=== PATIENT | female | born 2000 | race Caucasian/White ===

== ENCOUNTER 2023-11-25 15:15 | Outpatient (REF) | payer BC, SELFPAY ==
[2023-11-30 07:08] LABS: Age Gdln ACOG Testing Note (.); IGP, rfx Aptima HPV ASCU Note (.)
== END 2023-11-25 15:16 | disposition home or self-care (01) ==
LOC: LAB 15:15
PROVIDERS: Visit Provider Obstetrics & Gynecology
DX: Z01.419 Encounter for gynecological examination (general) (routine) without abnormal findings (principal)
CPT/HCPCS: G0145

== ENCOUNTER 2024-03-30 12:08 | Emergency (ER) | payer BC, SELFPAY ==
[2024-03-30 12:13] VITALS: BP 128/79; PULSE 68; TEMP 36.3; O2SAT 100; BMI 23.2
--- NOTE | 2024-03-30 12:28 | ED_ITS ---
HPI - Abdominal Pain General Chief Complaint: Abdominal Pain Stated Complaint: ABDOMINAL PAIN Time Seen by Provider: 03/30/24 12:22 History of Present Illness HPI narrative: 23-year-old female presents for abdominal pain. She is complaining of pain which is severe in the lower abdomen and she states is due to her period. It is severe and she has been having issues and has seen a interlocking and signal mechanic about it. She has had an ultrasound and has had no laparoscopies. The working diagnosis was possible endometriosis. Related Data Allergies Allergy/AdvReac Type Severity Reaction Status Date / Time No Known Drug Allergies Allergy Verified 03/30/24 12:16 Review of Systems ROS Narrative A ten point review of systems is negative except as noted above. Exam Narrative Exam Narrative: Nurses note and vital signs reviewed and patient is not hypoxic. General: The patient appears uncomfortable. Skin: Warm, dry, no pallor noted. There is no rash noted. Head: Normocephalic, atraumatic Eye: Normal conjunctiva, no drainage Ears, Nose, Mouth, and Throat: oral mucosa is moist. Nares patent. Cardiovascular: Regular Rate and Rhythm Respiratory: Patient is in no distress, no accessory muscle use, lungs are clear to auscultation, no wheezing, rales or rhonchi Back: non-tender GI: Soft and tender across the lower abdomen. Musculoskeletal: The patient has no evidence of calf tenderness, no pitting hortencia ma, symmetrical pulses noted bilaterally Neurological: Awake and alert Psychiatric: Cooperative Constitutional Vital Signs, click to edit/add: Last Vital Signs Temp 97.3 F L 03/30/24 12:13 Pulse 68 03/30/24 12:13 Resp 20 03/30/24 12:13 BP 128/79 03/30/24 12:13 Pulse Ox 100 03/30/24 12:13 O2 Del Method Room Air 03/30/24 12:13 Course Vital Signs Vital signs: Vital Signs Temperature 97.3 F L 03/30/24 12:13 Pulse Rate 68 03/30/24 12:13 Respiratory Rate 20 03/30/24 12:13 Blood Pressure 128/79 03/30/24 12:13 Pulse Oximetry 100 03/30/24 12:13 Oxygen Delivery Method Room Air 03/30/24 12:13 Temperature 97.3 F L 03/30/24 12:13 Pulse Rate 68 03/30/24 12:13 Respiratory Rate 20 03/30/24 12:13 Blood Pressure 128/79 03/30/24 12:13 Pulse Oximetry 100 03/30/24 12:13 Oxygen Delivery Method Room Air 03/30/24 12:13 MDM - Abdominal Pain MDM Narrative Medical decision making narrative: Blood work is essentially negative, she is not . She is feeling much better with IV Toradol and is discharged home. She will have follow-up with her interlocking and signal mechanic. Treatment diagnosis and follow-up were discussed with the patient. Differential Diagnosis Differential diagnosis: Likely abdominal pain and other (Dysmenorrhea, endometriosis) Lab Data Attestation: I reviewed the patient's lab results. Labs: Lab Results 03/30/24 Range/Units 12:17 WBC 5.8 (4.0-11.0) 10^3/uL RBC 4.65 (4.20-5.40) 10^6/uL Hgb 13.8 (12.0-16.0) g/dL Hct 40.3 (36.0-48.0) % MCV 86.7 (81.0-99.0) fL MCH 29.7 (26.7-34.0) pg MCHC 34.2 (29.9-35.2) g/dL RDW 11.9 (11.0-15.0) % Plt Count 214 (150-450) 10^3/uL MPV 11.3 (9.5-13.5) fL Neut % (Auto) 63.7 (43.0-75.0) % Lymph % (Auto) 27.4 (20.5-60.0) % [place] % (Auto) 7.3 (1.7-12.0) % Eos % (Auto) 1.2 (0.9-7.0) % Baso % (Auto) 0.2 (0.2-2.0) % Neut # (Auto) 3.7 (1.4-6.5) 10^3/uL Lymph # (Auto) 1.6 (1.2-3.8) 10^3/uL [place] # (Auto) 0.4 (0.3-0.8) 10^3/uL Eos # (Auto) 0.1 (0.0-0.7) 10^3/uL Baso # (Auto) 0.0 (0.0-0.1) 10^3/uL Abs Immat Gran (auto) 0.01 (0.00-0.03) 10^3/uL Imm/Tot Granulo (auto) 0.2 (0.0-0.5) % Sodium 136 (136-145) mmol/L Potassium 3.5 (3.5-5.1) mmol/L Chloride 102 (98-107) mmol/L Carbon Dioxide 20.8 L (21.0-32.0) mmol/L Anion Gap 16.7 BUN 9.0 (7.0-18.0) mg/dL Creatinine 0.98 (0.55-1.02) mg/dL Est GFR ( Amer) >60 (>=60) Est GFR (Non-Af Amer) >60 (>=60) BUN/Creatinine Ratio 9.2 Glucose 114 H (74-106) mg/dL Calcium 9.3 (8.5-10.1) mg/dL Serum HCG, Qual Negative (NEGATIVE) Discharge Plan Discharge Chief Complaint: Abdominal Pain Clinical Impression: Dysmenorrhea Patient Disposition: Home, Self-Care Time of Disposition Decision: 13:38 Condition: Good Mode of Transportation: Private Vehicle Print Language: Sammarinese Instructions: Dysmenorrhea (ED) Additional Instructions: Follow-up with Dr. Singh Referrals: Physician,Non-Staff, [Physician] - 1 week
[2024-03-30] MEDS: 0.9 % SODIUM CHLORIDE 1,000 ML 1000 ML IV (12:38)
[2024-03-30] MEDS: ONDANSETRON PF 4 MG/2 ML VIAL IV (12:38)
[2024-03-30 12:41] LABS: Basophils Percent Auto 0.2 % (0.2-2.0); Eosinophils Absolute Auto 0.1 10^3/uL (0.0-0.7); Eosinophils Percent Auto 1.2 % (0.9-7.0); Hematocrit 40.3 % (36.0-48.0); Hemoglobin 13.8 g/dL (12.0-16.0); Immature Granulocytes Abs Auto 0.01 10^3/uL (0.00-0.03); Immature Granulocytes Pct Auto 0.2 % (0.0-0.5); Lymphocytes Absolute Auto 1.6 10^3/uL (1.2-3.8); Lymphocytes Percent Auto 27.4 % (20.5-60.0); Mean Corpuscular HGB Conc 34.2 g/dL (29.9-35.2); Mean Corpuscular Hemoglobin 29.7 pg (26.7-34.0); Mean Corpuscular Volume 86.7 fL (81.0-99.0); Mean Platelet Volume 11.3 fL (9.5-13.5); Monocytes Absolute Auto 0.4 10^3/uL (0.3-0.8); Monocytes Percent Auto 7.3 % (1.7-12.0); Neutrophils Absolute Auto 3.7 10^3/uL (1.4-6.5); Neutrophils Percent Auto 63.7 % (43.0-75.0); Platelet Count 214 10^3/uL (150-450); Red Blood Count 4.65 10^6/uL (4.20-5.40); Red Cell Distribution Width 11.9 % (11.0-15.0); White Blood Count 5.8 10^3/uL (4.0-11.0)
[2024-03-30 12:49] LABS: Anion Gap 16.7; BUN Creatinine Ratio 9.2; Calcium 9.3 mg/dL (8.5-10.1); Carbon Dioxide 20.8 mmol/L (21.0-32.0); Chloride 102 mmol/L (98-107); Estimated GFR (African America >60 (>=60); Estimated GFR (Non-African Ame >60 (>=60); Glucose 114 mg/dL (74-106); Potassium 3.5 mmol/L (3.5-5.1); Sodium 136 mmol/L (136-145)
[2024-03-30 12:53] LABS: HCG Qualitative NEGATIVE (NEGATIVE); Internal Control Within Normal Limits
[2024-03-30] MEDS: KETOROLAC TROMETHAMINE 30 MG/ML VIAL IVP (13:00)
--- OUTSIDE RECORDS SUMMARY | 2024-03-30 13:18 | XMS_ITS | CCD ---
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 Name Role Phone Unavailable Primary Care Provider Suzette Mcgarry Unavailable DR KEVIN BELTRAN Primary Care Unavailable GALA ., DR CASTELLANOS Attending Unavailable GALA ., DR CASTELLANOS Consulting Unavailable GALA ., DR CASTELLANOS Admitting Unavailable KEVIN BELTRAN Primary Care Unavailable MD PEARCE LUCY Attending Unavailable EMANUEL CEDEÑO Attending Unavailable Medications Current Medications Medication Drug Class(es) Dates Sig (Normalized) Sig (Original) ondansetron 4 mg oral tablet (1 source) Serotonin-3 Receptor Antagonist Start: 06-21-2022 take 1 tablet by mouth every eight hours as needed Ondansetron HCl 4 MG 1 tablet Orally every 8 hours as needed for 7 days Jun, Active oseltamivir 75 mg oral capsule (1 source) Neuraminidase Inhibitor Start: 06-21-2022 take 1 capsule by mouth every twelve hours Oseltamivir Phosphate 75 MG 1 capsule Orally Twice a day for 5 day(s) Jun, Active Problems Problem Classification Problem Date Documented Date Episodic/Chronic Abdominal pain (1 source) Generalized abdominal pain; Translations: [Diffuse abdominal pain] Onset: 02-22-2023 Episodic Immunizations and screening for infectious disease (3 sources) Contact with and (suspected) exposure to other viral communicable diseases; Translations: [Encounter for screening for human papillomavirus (HPV)] Onset: 11-22-2022 Episodic Influenza (2 sources) Influenza due to Influenza A virus; Translations: [Influenza due to other identified influenza virus with other respiratory manifestations] Episodic Menstrual disorders (2 sources) Excessive and frequent menstruation with irregular cycle; Translations: [Dysmenorrhea, unspecified] Onset: 02-22-2023 Chronic Other screening for suspected conditions (not mental disorders or infectious disease) (4 sources) Encounter for screening for malignant neoplasm of cervix; Translations: [ENC SCREENING MALIG NEOPLASM CERV] Onset: 11-19-2022 Episodic Results Test Name Value Interpretation Reference Range Facil ity BETA HCG, QUANTITATIVE FOR E Don 02-22-2023 HCG.beta subunit Qn m[IU]/mL Normal <5.0 [facility] Comment on above: Order Comment: Speci men Type: BLOOD SPECIMEN Ordering Facility: [facility] Address: [address] [place] [address] Result Comment: Nega tive Performed By: #### H CGED, 74721-3, 32109-7, 2157-6, 3040-3 #### [facility] CLIA [id number] [address] [place] [address] C. trachomatis+N. gonorrhoea e DNA ANSELMO+probe Ql (Unsp spec)on 02-22-2023 C. trachomatis rRNA ANSELMO+probe Ql (Unsp spec) Negative Normal Negative for Chlamydia trachomatis by amplificaton [facility] Comment on above: Order Comment: Speci men Type: SWAB Ordering Facility: [facility] Address: [address] [place] [address] Performed By: #### 3 6902-5, TRVAMP #### [facility] CLIA [id number] [address] [place] [address] N. gonorrhoeae rRNA ANSELMO+probe Ql (Unsp spec) Negative Normal Negative for Neisseria gonorrhoeae by amplification [facility] Comment on above: Order Comment: Speci men Type: SWAB Ordering Facility: [facility] Address: [address] [place] [address] Performed By: #### 3 6902-5, TRVAMP #### [facility] CLIA [id number] [address] [place] [address] [place] CBC W Auto Differential pane l (Bld)on 02-22-2023 Basophils (Bld) [#/Vol] 10*3/uL Normal <0.11 [facility] Comment on above: Order Comment: Speci men Type: BLOOD SPECIMEN Ordering Facility: [facility] Address: [address] Performed By: #### 5 7021-8 #### [facility] CLIA [id number] [address] [place] [address] [place] Basophils/100 WBC (Bld) 0.0 % Normal [facility] Comment on above: Order Comment: Speci men Type: BLOOD SPECIMEN Ordering Facility: [facility] Address: [address] Performed By: #### 5 7021-8 #### [facility] CLIA [id number] [address] [place] [address] [place] Differential cell count method Nom (Bld) Auto Normal [facility] Comment on above: Order Comment: Speci men Type: BLOOD SPECIMEN Ordering Facility: [facility] Address: [address] Performed By: #### 5 7021-8 #### [facility] CLIA [id number] [address] [place] [address] [place] Eosinophils (Bld) [#/Vol] 10*3/uL Normal <0.46 [facility] Comment on above: Order Comment: Speci men Type: BLOOD SPECIMEN Ordering Facility: [facility] Address: [address] Performed By: #### 5 7021-8 #### [facility] CLIA [id number] [address] [place] [address] [place] Eosinophils/100 WBC (Bld) 0.3 % Normal [facility] Comment on above: Order Comment: Speci men Type: BLOOD SPECIMEN Ordering Facility: [facility] Address: [address] [place] [address] Performed By: #### 5 7021-8 #### [facility] CLIA [id number] [address] [place] [address] [place] Erythrocyte distribution width (RBC) [Ratio] 12.1 % Normal 11.5-15.0 [facility] Comment on above: Order Comment: Speci men Type: BLOOD SPECIMEN Ordering Facility: [facility] Address: [address] [place] [address] Performed By: #### 5 7021-8 #### [facility] CLIA [id number] [address] [place] [address] [place] Hematocrit (Bld) [Volume fraction] 39.7 % Normal 36.0-46.0 [facility] Comment on above: Order Comment: Speci men Type: BLOOD SPECIMEN Ordering Facility: [facility] Address: [address] [place] [address] Performed By: #### 5 7021-8 #### [facility] CLIA [id number] [address] [place] [address] [place] Hemoglobin (Bld) [Mass/Vol] 13.2 g/dL Normal 11.5-15.5 [facility] Comment on above: Order Comment: Speci men Type: BLOOD SPECIMEN Ordering Facility: [facility] Address: [address] [place], [place] [address] Performed By: #### 5 7021-8 #### [facility] CLIA [id number] [address] [place] [address] [place] Immature granulocytes (Bld) [#/Vol] 10*3/uL Normal <0.10 [facility] Comment on above: Order Comment: Speci men Type: BLOOD SPECIMEN Ordering Facility: [facility] Address: [address] [place], [place] [address] Performed By: #### 5 7021-8 #### [facility] CLIA [id number] [address] [place] [address] [place] Immature granulocytes/100 WBC (Bld) 0.3 % Normal [facility] Comment on above: Order Comment: Speci men Type: BLOOD SPECIMEN Ordering Facility: [facility] Address: [address] Performed By: #### 5 7021-8 #### [facility] CLIA [id number] [address] [place] [address] [place] Lymphocytes (Bld) [#/Vol] 0.60 10*3/uL Low 1.00-4.00 [facility] Comment on above: Order Comment: Speci men Type: BLOOD SPECIMEN Ordering Facility: [facility] Address: [address] [place] [address] Performed By: #### 5 7021-8 #### [facility] CLIA [id number] [address] [place] [address] [place] Lymphocytes/100 WBC (Bld) 8.8 % Normal [facility] Comment on above: Order Comment: Speci men Type: BLOOD SPECIMEN Ordering Facility: [facility] Address: [address] Performed By: #### 5 7021-8 #### [facility] CLIA [id number] [address] [place] [address] [place] MCH (RBC) [Entitic mass] 28.9 pg Normal 26.0-34.0 [facility] Comment on above: Order Comment: Speci men Type: BLOOD SPECIMEN Ordering Facility: [facility] Address: [address] Performed By: #### 5 7021-8 #### [facility] CLIA [id number] [address] [place] [address] [place] MCHC (RBC) [Mass/Vol] 33.2 g/dL Normal 30.5-36.0 [facility] Comment on above: Order Comment: Speci men Type: BLOOD SPECIMEN Ordering Facility: [facility] Address: [address] Performed By: #### 5 7021-8 #### [facility] CLIA [id number] [address] [place] [address] [place] MCV (RBC) [Entitic vol] 86.9 fL Normal 80.0-100.0 [facility] Comment on above: Order Comment: Speci men Type: BLOOD SPECIMEN Ordering Facility: [facility] Address: [address] [place] [address] Performed By: #### 5 7021-8 #### [facility] CLIA [id number] [address] [place] [address] [place] Monocytes (Bld) [#/Vol] 0.42 10*3/uL Normal <0.87 [facility] Comment on above: Order Comment: Speci men Type: BLOOD SPECIMEN Ordering Facility: [facility] Address: [address] [place] [address] Performed By: #### 5 7021-8 #### [facility] CLIA [id number] [address] [place] [address] [place] Monocytes/100 WBC (Bld) 6.1 % Normal [facility] Comment on above: Order Comment: Speci men Type: BLOOD SPECIMEN Ordering Facility: [facility] Address: [address] [place], [place] [address] Performed By: #### 5 7021-8 #### [facility] CLIA [id number] [address] [place] [address] [place] Neutrophils (Bld) [#/Vol] 5.78 10*3/uL Normal 1.45-7.50 [facility] Comment on above: Order Comment: Speci men Type: BLOOD SPECIMEN Ordering Facility: [facility] Address: [address] [place], [place] [address] Performed By: #### 5 7021-8 #### [facility] CLIA [id number] [address] [place] [address] [place] Neutrophils/100 WBC (Bld) 84.5 % Normal [facility] Comment on above: Order Comment: Speci men Type: BLOOD SPECIMEN Ordering Facility: [facility] Address: [address] [place] [address] Performed By: #### 5 7021-8 #### [facility] CLIA [id number] [address] [place] [address] [place] Nucleated RBC (Bld) [#/Vol] 10*3/uL Normal <0.01 [facility] Comment on above: Order Comment: Speci men Type: BLOOD SPECIMEN Ordering Facility: [facility] Address: [address] Performed By: #### 5 7021-8 #### [facility] CLIA [id number] [address] [place] [address] [place] Nucleated RBC/100 WBC (Bld) [Ratio] 0.0 /100 WBC Normal [facility] Comment on above: Order Comment: Speci men Type: BLOOD SPECIMEN Ordering Facility: [facility] Address: [address] Performed By: #### 5 7021-8 #### [facility] CLIA [id number] [address] [place] [address] [place] Platelet mean volume (Bld) [Entitic vol] 10.8 fL Normal 9.0-12.7 [facility] Comment on above: Order Comment: Speci men Type: BLOOD SPECIMEN Ordering Facility: [facility] Address: [address] [place], [place] Performed By: #### 5 7021-8 #### [facility] CLIA [id number] [address] [place] [address] [place] Platelets (Bld) [#/Vol] 193 10*3/uL Normal 150-400 [facility] Comment on above: Order Comment: Speci men Type: BLOOD SPECIMEN Ordering Facility: [facility] Address: [address] [place] [address] Performed By: #### 5 7021-8 #### [facility] CLIA [id number] [address] [place] [address] [place] RBC (Bld) [#/Vol] 4.57 10*6/uL Normal 3.90-5.20 [facility] Comment on above: Order Comment: Speci men Type: BLOOD SPECIMEN Ordering Facility: [facility] Address: [address] [place], [place] [address] Performed By: #### 5 7021-8 #### [facility] CLIA [id number] [address] [place] [address] WBC (Bld) [#/Vol] 6.84 10*3/uL Normal 3.70-11.00 [facility] Comment on above: Order Comment: Speci men Type: BLOOD SPECIMEN Ordering Facility: [facility] Address: [address] [place] [address] Performed By: #### 5 7021-8 #### [facility] CLIA [id number] [address] [place] [address] [place] CK SerPl-cCncon 02-22-2023 CK [Catalytic activity/Vol] 67 U/L Normal 42-196 [facility] Comment on above: Order Comment: Speci men Type: BLOOD SPECIMEN Ordering Facility: [facility] Address: [address] [place] [address] Performed By: #### H CGED, 71363-7, 47546-5, 2157-6, 3040-3 #### [facility] CLIA [id number] [address] [place] [address] [place] Comprehensive metabolic 2000 panelon 02-22-2023 Albumin [Mass/Vol] 4.2 g/dL Normal 3.9-4.9 [facility] Comment on above: Order Comment: Speci men Type: BLOOD SPECIMEN Ordering Facility: [facility] Address: [address] [place] [address] Performed By: #### H CGED, 50497-5, 03900-6, 2157-6, 3040-3 #### [facility] CLIA [id number] [address] [place] [address] [place] ALP [Catalytic activity/Vol] 67 U/L Normal 34-123 [facility] Comment on above: Order Comment: Speci men Type: BLOOD SPECIMEN Ordering Facility: [facility] Address: [address] [place] [address] Performed By: #### H CGED, 33728-4, 70059-2, 2157-6, 3040-3 #### [facility] CLIA [id number] [address] [place] [address] [place] ALT [Catalytic activity/Vol] 19 U/L Normal 7-38 [facility] Comment on above: Order Comment: Speci men Type: BLOOD SPECIMEN Ordering Facility: [facility] Address: [address] [place] [address] Performed By: #### H CGED, 37962-2, 63713-8, 2157-6, 3040-3 #### [facility] CLIA [id number] [address] [place] [address] [place] Anion gap [Moles/Vol] 11 mmol/L Normal 9-18 [facility] Comment on above: Order Comment: Speci men Type: BLOOD SPECIMEN Ordering Facility: [facility] Address: [address] [place] [address] Performed By: #### H CGED, 46245-6, 16409-5, 2157-6, 3040-3 #### [facility] CLIA [id number] [address] [place] [address] [place] AST [Catalytic activity/Vol] 19 U/L Normal 13-35 [facility] Comment on above: Order Comment: Speci men Type: BLOOD SPECIMEN Ordering Facility: [facility] Address: [address] [place] [address] Performed By: #### Aleksandr LEONORED, 87460-4, 85604-3, 6, 3039-3 #### [facility] CLIA [id number] [address] [place], [place] [address] [place] Bilirubin [Mass/Vol] 0.7 mg/dL Normal 0.2-1.3 [facility] Comment on above: Order Comment: Speci men Type: BLOOD SPECIMEN Ordering Facility: [facility] Address: [address] Performed By: #### Aleksandr GREEN, 30314-0, 29328-6, 2156-12, 3039-3 #### [facility] CLIA [id number] [address] [place] [address] [place] Calcium [Mass/Vol] 9.1 mg/dL Normal 8.5-10.2 [facility] Comment on above: Order Comment: Speci men Type: BLOOD SPECIMEN Ordering Facility: [facility] Address: [address] Performed By: #### Aleksandr GREEN, 10896-3, 77566-5, 2156-12, 3039-3 #### [facility] CLIA [id number] [address] [place] [address] [place] Chloride [Moles/Vol] 107 mmol/L High 97-105 [facility] Comment on above: Order Comment: Speci men Type: BLOOD SPECIMEN Ordering Facility: [facility] Address: [address] Performed By: #### H NORMA, 53508-4, 59823-4, 2156-12, 3039-3 #### [facility] CLIA [id number] [address] [place] [address] [place] CO2 [Moles/Vol] 21 mmol/L Low 22-30 [facility] Comment on above: Order Comment: Speci men Type: BLOOD SPECIMEN Ordering Facility: [facility] Address: [address] [place] [address] Performed By: #### H CGED, 50990-7, 29172-8, 2156-6, 0-3 #### [facility] CLIA [id number] [address] [place] [id number] [place] Creatinine [Mass/Vol] 0.89 mg/dL Normal 0.58-0.96 [facility] Comment on above: Order Comment: Speci men Type: BLOOD SPECIMEN Ordering Facility: [facility] Address: [address] Performed By: #### H CGED, 67035-6, 17682-6, 2156-12, 0-3 #### [facility] CLIA [id number] [facility] [place] [address] [place] ESTIMATED GLOMERULAR FILTRATION RATE 94 mL/min/1.73m??? Normal >=60 [facility] Comment on above: Order Comment: Speci men Type: BLOOD SPECIMEN Ordering Facility: [facility] Address: [address] [place] [address] Result Comment: Lynn mated Glomerular Filtration Rate (eGFR) is calculated using the 2020 CKD-EPI creatinine equation. This equation utilizes serum creatinine, sex, and age as parameters. The creatinine assay has traceable calibration to isotope dilution-mass spectrometry. Refer to KDIGO guidelines for clinical interpretation. In patients with unstable renal function, e.g. those with acute kidney injury, the eGFR may not accurately reflect actual GFR. Performed By: #### H CGED, 43473-0, 52009-2, 2156-6, 3040-3 #### [facility] CLIA [id number] [address] [place] [id number] [place] Glucose [Mass/Vol] 95 mg/dL Normal 74-99 [facility] Comment on above: Order Comment: Speci men Type: BLOOD SPECIMEN Ordering Facility: [facility] Address: [address] Result Comment: The [place] Diabetes Association (ADA) provides guidance for cutoff values for fasting glucose and random glucose. The ADA defines fasting as no caloric intake for at least 8 hours. Fasting plasma glucose results between 100 to 125 mg/dL indicate increased risk for diabetes (prediabetes). Fasting plasma glucose results greater than or equal to 126 mg/dL meet the criteria for diagnosis of diabetes. In the absence of unequivocal hyperglycemia, results should be confirmed by repeat testing. In a patient with classic symptoms of hyperglycemia or hyperglycemic crisis, random plasma glucose results greater than or equal to 200 mg/dL meet the criteria for diagnosis of diabetes. Reference: Standards of Medical Care in Diabetes 2016, [place] Diabetes Association. Diabetes Care. 2016.39(Suppl 1). Performed By: #### H CGED, , 01593-1, 2156-12, 0-3 #### [facility] CLIA [id number] [facility] [place] [id number] [place] Potassium [Moles/Vol] 3.9 mmol/L Normal 3.7-5.1 [facility] Comment on above: Order Comment: Speci men Type: BLOOD SPECIMEN Ordering Facility: [facility] Address: [address] [place] [address] Performed By: #### H CGED, , , 2156-12, 3039-3 #### [facility] CLIA [id number] [address] [address] [place] Protein [Mass/Vol] 6.8 g/dL Normal 6.3-8.0 [facility] Comment on above: Order Comment: Speci men Type: BLOOD SPECIMEN Ordering Facility: [facility] Address: [address] [place] [address] Performed By: #### H CGED, , , 2156-12, 0-3 #### [facility] CLIA [id number] [address] [address] [place] Sodium [Moles/Vol] 139 mmol/L Normal 136-144 [facility] Comment on above: Order Comment: Speci men Type: BLOOD SPECIMEN Ordering Facility: [facility] Address: [address] [place] [address] Performed By: #### H CGED, 74924-3, 54242-4, 7-6, 3040-3 #### [facility] CLIA [id number] [address] [place] [id number] [place] Urea nitrogen [Mass/Vol] 10 mg/dL Normal 7-21 [facility] Comment on above: Order Comment: Speci men Type: BLOOD SPECIMEN Ordering Facility: [facility] Address: [address] [place] [address] Performed By: #### H CGED, 23742-6, 93158-7, 6, 0-3 #### [facility] CLIA [id number] [address] [place] ED NOTEon 02-22-2023 ED NOTE HNO ID: [id number] Author: Ness Holliday RN Service: ? Author Type: Registered Nurse Type: ED Notes Filed: 02/22/2023 10:48 AM Note Text: Bed: E13-B08 Expected date: Expected time: Means of arrival: Comments: EMS - hr advisor Normal [facility] ED PROV NOTEon 02-22-2023 ED PROV NOTE HNO ID: [id number] Author: Teresa Pearce MD Service: Emergency Medicine Author Type: Physician Type: ED Provider Notes Filed: 02/22/2023 12:50 PM Note Text: ED Provider Note Patient Name: Shira Cunningham : 2000 SERVICE DATE: 02/22/23 History Patient presents with: Abdominal Pain Dizziness: Numbness: Pt presents to ED via EMS with two day hx of feelings of lightheadedness, abdominal cramping, numbness and tingling to fingers. HPI 22-year-old female past medical history significant for recent removal of her IUD in November with irregular menstrual cycles that are painful, LMP today who presents emergency department via EMS from outpatient [facility] regarding severe abdominal pain. Patient states that she was in her usual state of health yesterday, she went for a run which she does daily, noting that she runs several miles a day, but after running about a mile she had to stop due to an oncoming train and developed severe abdominal pain. States she was unable to get up due to the pain and run so she had a call for a ride home, thought it was dehydration had some water without relief, had 1 episode of nonbloody nonbilious emesis No urinary symptoms No fever or chills No URI symptoms States she went to work today, took some Tylenol prior for the abdominal discomfort, her menstrual cycle initiated thought that this was menstrual cramps but while in clinic developed severe abdominal pain unlike any menstrual cycle in the past States he did tjowz-ra-vose labs there which showed normal electrolytes, lactate 3.36 and EMS called, did not have anything in addition to pain which has since significantly subsided, only dull now No h/o ovarian cysts or torsion + b/l menorrhagia states goes through 6 super tampons/day (only on her first currently as menstrual cycle just started) + sexually active, does not use protection, no alternative BC since removal of IUD No past medical history on file. No past surgical history on file. No family history on file. Social History Tobacco Use Smoking status: Not on file Smokeless tobacco: Not on file Substance and Sexual Activity Alcohol use: Not on file Drug use: Not on file Sexual activity: Not on file ALLERGIES No Known Allergies Review of Systems All other systems reviewed and are negative. Physical Exam Vitals [02/22/23 1101] BP Pulse Temp Temp src Resp SpO2 Weight Height 113/75 64 36.4 ?C (97.6 ?F) Oral 18 100 % 61.2 kg (135 lb) 1.702 m (5' 7 ) Physical Exam Vitals and nursing note reviewed. Exam conducted with a rv technician present (MANNY Leger). Constitutional: General: She is not in acute distress. Appearance: Normal appearance. She is not ill-appearing, toxic-appearing or diaphoretic. HENT: Head: Normocephalic and atraumatic. Nose: No congestion. Mouth/Throat: Mouth: Mucous membranes are moist. Eyes: General: No scleral icterus. Cardiovascular: Rate and Rhythm: Normal rate and regular rhythm. Pulses: Normal pulses. Heart sounds: Normal heart sounds. Pulmonary: Effort: Pulmonary effort is normal. No respiratory distress. Abdominal: General: Abdomen is flat. There is no distension. Palpations: Abdomen is soft. There is no mass. Tenderness: There is no abdominal tenderness. There is no right CVA tenderness or left CVA tenderness. Genitourinary: Comments: + bleeding No clots in vaginal vault No CMT No adnexal mass/tenderness Musculoskeletal: General: No swelling. Normal range of motion. Cervical back: Normal range of motion and neck supple. Skin: General: Skin is warm and dry. Capillary Refill: Capillary refill takes less than 2 seconds. Coloration: Skin is not jaundiced. Neurological: General: No focal deficit present. Mental Status: She is alert. Motor: No weakness. Psychiatric: Mood and Affect: Mood normal. Diagnostic Testing ED Labs Ordered and Reviewed URINALYSIS WITH MICROSCOPIC, REFLEX CULTURE - Abnormal; Notable for the following components: Result Value Ref Range Specific [place], Ur 1.032 (*) 1.005 - 1.030 pH, Urine 8.5 (*) 5.0 - 8.0 Protein, Urine 1+ (*) Trace, Negative WBC, Urine 6-10 /HPF (*) 0-5 /HPF All other components within normal limits Narrative: Rechecked by light microscopy. CBC + DIFF - Abnormal; Notable for the following components: Abs Lymph 0.60 (*) 1.00 - 4.00 k/uL All other components within normal limits COMP METABOLIC PANEL - Abnormal; Notable for the following components: Chloride 107 (*) 97 - 105 mmol/L CO2 21 (*) 22 - 30 mmol/L All other components within normal limits CK CREATINE KINASE - Normal LIPASE BLD - Normal MAGNESIUM BLD - Normal BETA HCG, QUANTITATIVE FOR ED - Normal LACTATE - ED (POC) ED BG VENOUS/LAB PANELS Narrative: Meter ID:ED Location:ED [facility], [address] [place] [address], [address] GONORRHEA/CHLAMYDIA NAAT TRI (more content not included)... Normal [facility] Lipase SerPl-cCncon 02-23-20 23 Lipase [Catalytic activity/Vol] 23 U/L Normal 16-61 [facility] Comment on above: Order Comment: Speci men Type: BLOOD SPECIMEN Ordering Facility: [facility] Address: [address] Performed By: #### H NORMA, 32745-2, 74484-2, 2156-6, 0-3 #### [facility] CLIA [id number] [address] [place] [address] [place] Magnesium SerPl-mCncon 02-22 Magnesium [Mass/Vol] 1.8 mg/dL Normal 1.7-2.3 [facility] Comment on above: Order Comment: Speci men Type: BLOOD SPECIMEN Ordering Facility: [facility] Address: [address] [place], [place] [address] Performed By: #### H NORMA, 89895-3, 98473-6, 2156-12, 0-3 #### [facility] CLIA [id number] [address] [place] [address] [place] Reagin and Treponema pallidu m IgG and IgM [Interp]on 02-22-2023 SYPHILIS INTERPRETATION Cannot exclude recent Treponemal infection if specimen collected within 7-10 days after appearance of suspect lesions or 2-3 weeks after an exposure. Clinical correlation is required. Normal [facility] Comment on above: Order Comment: Speci men Type: BLOOD SPECIMENOrdering Facility: [facility] Address: [address] [place], [place] [address] Performed By: #### 7 3752-8 ####[facility] [id number] [place] [address] [place] T. pallidum IgG+IgM IA Ql (S) Non-Reactive Normal Nonreactive [facility] Comment on above: Order Comment: Speci men Type: BLOOD SPECIMENOrdering Facility: [facility] Address: [address] [place], [place] [address] Performed By: #### 7 3752-8 ####[facility] [id number] [place] [address] [place] TRICHOMONAS VAGINALIS [facility] 02-22-2023 T. vaginalis DNA ANSELMO+probe Ql (Unsp spec) Negative Normal Negative for Trichomonas vaginalis by amplification [facility] Comment on above: Order Comment: Speci men Type: SWABOrdering Facility: [facility] Address: [address] [place] [address] Performed By: #### 3 6902-5, TRVAMP ####[facility] [id number] [facility] [address] [place] US DOPPLER COMPLETEon 2022 US DOPPLER COMPLETE * * *Final Report* * * DATE OF EXAM: Feb 22 2023 12:02PM [facility] [place] [facility] [place] DOPPLER COMPLETE / PROCEDURE REASON: Ovarian torsion * * * * Physician Interpretation * * * * EXAMINATION: TRANSVAGINAL AND LIMITED TRANSABDOMINAL FEMALE PELVIC ULTRASOUND CLINICAL HISTORY: Left lower quadrant abdominal pain. Concern for torsion. TECHNIQUE: Sonography of the pelvis was performed by transvaginal and transabdominal (limited) techniques. Images were obtained and stored in a permanent archive. MQ: [facility]_2021 COMPARISON: None RESULT: Uterus: -Size: 6.3 x 3.2 x 5.5 cm -Orientation: Anteverted -Endometrial echo complex: Evaluation of the endometrium was adequate. The endometrial echo complex measured 1.0 cm. -Cervix: Normal, with trace fluid. -Adenomyosis assessment: There are no sonographic findings of adenomyosis. -Fibroids: There are no fibroids. Right Ovary: 3.3 x 2.0 x 2.0 cm - Normal sonographic appearance with physiologic follicles. Doppler imaging showed normal arterial and venous flow throughout the ovary. Left Ovary: 3.2 x 2.0 x 3.0 cm - Normal sonographic appearance with physiologic follicles. Doppler imaging showed normal arterial and venous flow throughout the ovary. Free Fluid: Small free fluid is likely physiologic. IMPRESSION: Normal sonographic appearance of the female pelvis. Normal arterial and venous flow within both ovaries. Hr Recruiter: KATY Transcribe Date/Time: Feb 22 2023 12:09P Dictated by : JOANNA LARRY, DO This examination was interpreted and the report reviewed and electronically signed by: ANDIE DONALD MD on Feb 22 2023 12:16PM EST [id number] CN Normal [facility] US FEMALE PELVIS TRANSABD LT Don 02-22-2023 US FEMALE PELVIS TRANSABD LTD * * *Final Report* * * DATE OF EXAM: Feb 22 2023 12:02PM [facility] 1059 - US FEMALE PELVIS TRANSABD LTD / PROCEDURE REASON: Ovarian torsion * * * * Physician Interpretation * * * * EXAMINATION: TRANSVAGINAL AND LIMITED TRANSABDOMINAL FEMALE PELVIC ULTRASOUND CLINICAL HISTORY: Left lower quadrant abdominal pain. Concern for torsion. TECHNIQUE: Sonography of the pelvis was performed by transvaginal and transabdominal (limited) techniques. Images were obtained and stored in a permanent archive. MQ: [facility]_2021 COMPARISON: None RESULT: Uterus: -Size: 6.3 x 3.2 x 5.5 cm -Orientation: Anteverted -Endometrial echo complex: Evaluation of the endometrium was adequate. The endometrial echo complex measured 1.0 cm. -Cervix: Normal, with trace fluid. -Adenomyosis assessment: There are no sonographic findings of adenomyosis. -Fibroids: There are no fibroids. Right Ovary: 3.3 x 2.0 x 2.0 cm - Normal sonographic appearance with physiologic follicles. Doppler imaging showed normal arterial and venous flow throughout the ovary. Left Ovary: 3.2 x 2.0 x 3.0 cm - Normal sonographic appearance with physiologic follicles. Doppler imaging showed normal arterial and venous flow throughout the ovary. Free Fluid: Small free fluid is likely physiologic. IMPRESSION: Normal sonographic appearance of the female pelvis. Normal arterial and venous flow within both ovaries. Hr Recruiter: PSCHaydee Transcribe Date/Time: Feb 22 2023 12:09P Dictated by : JOANNA LARRY, DO This examination was interpreted and the report reviewed and electronically signed by: ANDIE DONALD MD on Feb 22 2023 12:16PM EST [id number] CN Normal [facility] FEMALE PELVIS TRANSVAGon 02-22-2023 US FEMALE PELVIS TRANSVAG * * *Final Report* * * DATE OF EXAM: Feb 22 2023 12:02PM [facility] 1060 - US FEMALE PELVIS TRANSVAG / PROCEDURE REASON: Ovarian torsion * * * * Physician Interpretation * * * * EXAMINATION: TRANSVAGINAL AND LIMITED TRANSABDOMINAL FEMALE PELVIC ULTRASOUND CLINICAL HISTORY: Left lower quadrant abdominal pain. Concern for torsion. TECHNIQUE: Sonography of the pelvis was performed by transvaginal and transabdominal (limited) techniques. Images were obtained and stored in a permanent archive. MQ: P_2021 COMPARISON: None RESULT: Uterus: -Size: 6.3 x 3.2 x 5.5 cm -Orientation: Anteverted -Endometrial echo complex: Evaluation of the endometrium was adequate. The endometrial echo complex measured 1.0 cm. -Cervix: Normal, with trace fluid. -Adenomyosis assessment: There are no sonographic findings of adenomyosis. -Fibroids: There are no fibroids. Right Ovary: 3.3 x 2.0 x 2.0 cm - Normal sonographic appearance with physiologic follicles. Doppler imaging showed normal arterial and venous flow throughout the ovary. Left Ovary: 3.2 x 2.0 x 3.0 cm - Normal sonographic appearance with physiologic follicles. Doppler imaging showed normal arterial and venous flow throughout the ovary. Free Fluid: Small free fluid is likely physiologic. IMPRESSION: Normal sonographic appearance of the female pelvis. Normal arterial and venous flow within both ovaries. Hr Recruiter: PSCB Transcribe Date/Time: Feb 22 2023 12:09P Dictated by : JOANNA LARRY, This examination was interpreted and the report reviewed and electronically signed by: ANDIE DONALD MD on Feb 22 2023 12:16PM EST [id number] CN Normal [facility] Urinalysis complete panel (U )on 02-22-2023 Bilirubin Ql (U) Negative Normal Negative [facility] Comment on above: Order Comment: Speci men Type: URINE SPECIMEN Ordering Facility: [facility] Address: [address] [address] Performed By: #### 2 4356-8 #### [facility] CLIA [id number] [address] [place] [address] [place] Clarity (Unsp spec) Clear Normal Clear [facility] Comment on above: Order Comment: Speci men Type: URINE SPECIMEN Ordering Facility: [facility] Address: [address] [address] Performed By: #### 2 4356-8 #### [facility] CLIA [id number] [address] [place] [address] [place] Color (U) Yellow Normal Yellow [facility] Comment on above: Order Comment: Speci men Type: URINE SPECIMEN Ordering Facility: [facility] Address: [address] Performed By: #### 2 4356-8 #### [facility] CLIA [id number] [address] [place] [address] [place] Epithelial cells LM.HPF (Urine sed) [#/Area] Few Normal [facility] Comment on above: Order Comment: Speci men Type: URINE SPECIMEN Ordering Facility: [facility] Address: [address] [place] [address] Performed By: #### 2 4356-8 #### [facility] CLIA [id number] [address] [place] [address] [place] Glucose Test strip (U) [Mass/Vol] Negative Normal Trace, Negative [facility] Comment on above: Order Comment: Speci men Type: URINE SPECIMEN Ordering Facility: [facility] Address: [address] [place], [place] [address] Performed By: #### 2 4356-8 #### [facility] CLIA [id number] [address] [place] [address] [place] Hemoglobin Ql (U) Negative Normal Negative, Trace [facility] Comment on above: Order Comment: Speci men Type: URINE SPECIMEN Ordering Facility: [facility] Address: [address] [place] [address] Performed By: #### 2 4356-8 #### [facility] CLIA [id number] [address] [place] [address] [place] Ketones Ql (U) Negative Normal Trace, Negative [facility] Comment on above: Order Comment: Speci men Type: URINE SPECIMEN Ordering Facility: [facility] Address: [address] Performed By: #### 2 4356-8 #### [facility] CLIA [id number] [address] [place] [address] [place] Leukocyte esterase Test strip Ql (U) Negative Normal Negative, 25 Vinod/uL [facility] Comment on above: Order Comment: Speci men Type: URINE SPECIMEN Ordering Facility: [facility] Address: [address] [place] [address] Performed By: #### 2 4356-8 #### [facility] CLIA [id number] [facility] [address] [place] [address] [place] Nitrite Ql (U) Negative Normal Negative [facility] Comment on above: Order Comment: Speci men Type: URINE SPECIMEN Ordering Facility: [facility] Address: [address] [place], [place] [address] Performed By: #### 2 4356-8 #### [facility] CLIA [id number] [address] [place] [address] [place] pH (U) 8.5 [pH] High 5.0-8.0 [facility] Comment on above: Order Comment: Speci men Type: URINE SPECIMEN Ordering Facility: [facility] Address: [address] [place], [place] [address] Performed By: #### 2 4356-8 #### [facility] CLIA [id number] [address] [place] [address] [place] Protein (U) [Mass/Vol] 1+ Abnormal Trace, Negative [facility] Comment on above: Order Comment: Speci men Type: URINE SPECIMEN Ordering Facility: [facility] Address: [address] [place], [place] [address] Performed By: #### 2 4356-8 #### [facility] CLIA [id number] [facility] [address] [place] [address] [place] RBC LM.HPF (Urine sed) [#/Area] 0-3 /HPF Normal 0-3 /HPF [facility] Comment on above: Order Comment: Speci men Type: URINE SPECIMEN Ordering Facility: [facility] Address: [address] [place] [address] Performed By: #### 2 4356-8 #### [facility] CLIA [id number] [address] [place] [address] [place] Specific gravity (U) [Rel density] 1.032 High 1.005-1.030 [facility] Comment on above: Order Comment: Speci men Type: URINE SPECIMEN Ordering Facility: [facility] Address: [address] [place] [address] Performed By: #### 2 4356-8 #### [facility] CLIA [id number] [address] [place] [address] [place] Urobilinogen Ql (U) Negative Normal Negative [facility] Comment on above: Order Comment: Speci men Type: URINE SPECIMEN Ordering Facility: [facility] Address: [address] [place] [address] Performed By: #### 2 4356-8 #### [facility] CLIA [id number] [address] [place] [address] [place] WBC LM.HPF (Urine sed) [#/Area] 6-10 /HPF Abnormal 0-5 /HPF [facility] Comment on above: Order Comment: Speci men Type: URINE SPECIMEN Ordering Facility: [facility] Address: [address] [place], [place] [address] Performed By: #### 2 4356-8 #### [facility] CLIA [id number] [address] [place] [address] [place] PAP ACOG PANEL 2: 21 to 29on 11-26-2022 . . Normal [facility] Comment on above: Performed By: #### 4 [id number] #### [facility] [address] [place] [address] Dr. Mark Lima Age Gdln ACOG Testing 21-29 Normal [facility] Comment on above: Performed By: #### 4 [id number] #### [facility] [address] [place] [address] Dr. Mark Lima DIAGNOSIS: Comment [facility] Comment on above: Result Comment: NEGA TIVE FOR INTRAEPITHELIAL LESION OR MALIGNANCY. Performed By: #### 4 [id number] #### [facility] [address] [place] [address] Dr. Mark Lima Methodology: Comment [facility] Comment on above: Result Comment: This liquid based ThinPrep(R) pap test was screened with the use of an image guided system. Performed By: #### 4 [id number] #### [facility] [address] [place] [address] Dr. Mark Lima Note: Comment Normal [facility] Comment on above: Result Comment: The Pap smear is a screening test designed to aid in the detection of premalignant and malignant conditions of the uterine cervix. It is not a diagnostic procedure and should not be used as the sole means of detecting cervical cancer. Both false-positive and false-negative reports do occur. . Performed By: #### 4 [id number] #### [facility] [address] [place] [address] Dr. Mark Lima Performed by: Comment Normal [facility] Comment on above: Result Comment: Shelli Osborn, Bar Gauger And Lubricator Tender (ASCP) Performed By: #### 4 [id number] #### [facility] [address] [place] [address] Dr. Mark Lima Reflex Criteria: Comment [facility] Comment on above: Result Comment: The HPV DNA reflex criteria were not met with this specimen result therefore, no HPV testing was performed. . Performed By: #### 4 [id number] #### [facility] [address] [place] [address] Dr. Mark Lima Specimen adequacy: Comment Normal [facility] Comment on above: Result Comment: Sati sfactory for evaluation. Endocervical and/or squamous metaplastic cells (endocervical component) are present. Performed By: #### 4 [id number] #### [facility] [address] [place] [address] Dr. Mark Flower 06-22-2022 CNPN Telephone (CORPMN) MARISASHIRA ([id number]) 2000 F Date Time Provider Department 06/22/22 KI NATARAJAN During your visit today, we recorded the following information about you: Ki Natarajan RN 06/22/2022 10:19 AM Signed Cg called to report neg PCR done at [facility], and + influenza A test. Sending results to darya mailbox. Instructed Cg she does not neeed to be cleared by [facility] to RTW for influenza, just when 24 hrs fever free and feeling better. Cg verbalized understanding. AD Allergies As of Date: 06/22/2022 (Not on File) Date Reviewed: Never Reviewed Reason for Visit: [facility] COVID Outreach [[id number]] Problem List As Of Date: 06/22/2022 (None) Encounter Status:Closed by KI NATARAJAN on 06/22/22 Normal [facility] COVID/FLU RT-PCRon 2 SARS-CoV-2 (COVID-19) RNA ANSELMO+probe Ql (Unsp spec) Negative [facility] Other COVID/FLU RT-PCR Positive [facility] Other COVID/FLU RT-PCR Negative [facility] Other Quick Strepon 06-21-2022 S. pyogenes Org specific cx Ql (Throat) Negative [facility] Other Quick Strep [facility] Other Ching 06-20-2022 CNPN Telephone (CORPMN) SHIRA CUNNINGHAM ([id number]) 2000 F Date Time Provider Department 06/20/22 SYNDI HERNÁNDEZ During your visit today, we recorded the following information about you: Sydni Hernández RN 06/20/2022 7:32 PM Signed Symptomatic Caregiver COVID Call Patient Name: Shira Cunningham Date of : 2000 Primary Care Physician: No primary care provider on file. Service Date: 06/20/2022 Service Time: 7:26 PM Symptomatic Caregiver COVID Call - confirmed: Yes -Caregiver employee ID: [id number] -Symptom onset: 06/20/22 Covid Immunization Dates This patient does not qualify for Health Maintenance. Recent travel outside [place]: no Cares for COVID-19 positive patients: no Known positive COVID-19 contacts: no Previously positive for COVID: yes, Jul 2021 Comorbidities: [] Obesity [] Diabetes Mellitus [] Asthma/COPD [] [] Other: Symptoms: Fever, body aches, chills, sore throat [x] Mild [] Moderate [] Severe CG went tot work today but started having symptoms. [employer] told her to call the Hotline. Shira meets criteria for Caregiver COVID19 testing. CG prefers to go to local retail pharmacy. CG will call back with results. New chart set up and activation code sent. Plan -Reinforced self-isolation, avoiding public areas and gatherings, pending COVID19 result -Mask while home with family and not isolated alone -Advised no work pending COVID19 result -Advised to seek evaluation by primary care provider, [facility], or ED with worsening or escalating symptoms -Advised to call the COVID Hotline with outstanding questions/comments/c oncerns Signature: Sydni Hernández RN Patient Name: Shira Cunningham Date: 06/20/2022 Time: 7:26 PM Pager/Contact: Allergies As of Date: 06/20/2022 (Not on File) Date Reviewed: Never Reviewed [facility]3236] Problem List As Of Date: 06/20/2022 (None) Encounter Status:Closed by SYDNI HERNÁNDEZ on 06/20/22 Normal [facility] Vital Signs Date Time Vital Sign Value Performing Clinician Facility 06-21-2022 16:20-0500 Body height 170.18 cm Suzette Marcos Other [facility] Other 06-21-2022 16:20-0500 Body mass index (BMI) [Ratio] 21.14 kg/m2 Suzette Marcos Other [facility] Other 06-21-2022 16:20-0500 Body temperature 98.7 [degF] Suzette Marcos Other [facility] Other 06-21-2022 16:20-0500 Body weight 61.24 kg Suzette Marcos Other [facility] Other 06-21-2022 16:20-0500 Diastolic blood pressure 88 mm[Hg] Suzette Marcos Other [facility] Other 06-21-2022 16:20-0500 Respiratory rate 18 /min Suzette Marcos Other [facility] Other 06-21-2022 16:20-0500 SaO2% (BldA) [Mass fraction] 100 % Suzette Marcos Other [facility] Other 06-21-2022 16:20-0500 Systolic blood pressure 125 mm[Hg] Suzette Marcos Other [facility] Other Encounters Encounter Date Encounter Type Care Provider Facility Start: 11-25-2023 End: 11-25-2023 ambulatory EMANUEL GALA Not Available Start: 02-22-2023 End: 02-22-2023 Emergency department patient visit KEVIN Ingrid MILESTENZINAleshia Facility:[facility] Start: 11-19-2022 End: 11-19-[address] KEVIN BELTRAN Facility: Start: 06-21-2022 End: 06-21-2022 ambulatory Suzette Marcos Other [facility] Other Start: 06-21-2022 Office outpatient ne w 30 minutes Suzette Marcos [facility] Start: 06-20-2022 Telephone encounter Sydni Hernández RN Occupational Health Comment on above: [facility] COVID Outr each Payers Date Payer Category Payer Unknown [id number] 2000 Unknown [id number] 2000 Unknown [id number] Unknown [id number] Social History Date Type Detail Facility Tobacco smoking status TXIS Tobacco smoking consumption unknown [facility] Start: 2000 Sex Assigned At Not on file C [facility] Sex Assigned At Sex Assigned At Bir th [facility] Other Progress note 02-22-2023 Note Date & Type Note Facility 02-22-2023 Note HNO ID: [id number] Author: Alem Cook RT(A[facility]ia) Service: ? Author Type: Technologist Type: Progress Notes Filed: 02/22/2023 12:02 PM Note Text: Radiology Service Progress Note PATIENT NAME: Shira Cunningham DATE OF SERVICE: February 22, 2023 TIME: 12:02 PM PATIENT IDENTITY VERIFICATION COMPLETED USING TWO (2) IDENTIFIERS: Name and Date of confirmed by patient verbally and Name and Date of confirmed by identification band. FALL SCREENING: Has the patient had 2 falls in the last year or 1 fall with injury or currently using an Ambulatory Assistive Device (Walker, Cane, Wheelchair, Crutches, etc.)? Emergency Room Patient: Screened in ED PATIENT GENDER DATA: Female. status: Unknown status: N/A PATIENT RELEVANT IMPLANT DATA REVIEWED: Not Applicable RADIOLOGY DEPARTMENT: Ultrasound PERIPHERAL IV DATA: Not applicable SIGNED BY: RT Hubert(R) February 22, 2023 12:02 PM [facility] Evaluation note 06-21-2022 Note Date & Type Note Facility 06-21-2022 Evaluation note Encounter Date Diagnosis Assessment Notes Jun, Contact with and (suspected) exposure to other viral communicable diseases (ICD-10 - Z20.828) Jun, Influenza A (ICD-10 - J10.1) Advised patient that rapid Strep test was negative. Influenza A PCR positive, COVID/Influenza B negative. Encouraged supportive care, Tamiflu as directed, Zofran and , Tylenol/Motrin as needed for body aches/fever. Increase fluids and rest. Encouraged use of cool mist humidifier. Follow-up with PCP for further management if needed. Immediate eval for SOB, difficulty, chest pain, fevers that do not break with antipyretic or any other concerning symptoms as reviewed on patient education handout. Patient verbalizes understanding and is agreeable to treatment plan. Patient left in stable condition [facility] Other Note 06-20-2022 Telephone Encounter - Sydni Hernández RN - 06/20/2022 7:26 PM EST Note Date & Type Note Facility 06-20-2022 Miscellaneous Notes Formattin g of this note is different from the original. Images from the original note were not included. Symptomatic Caregiver COVID Call Patient Name: Shira Cunningham Date of : 2000 Primary Care Physician: No primary care provider on file. Service Date: 06/20/2022 Service Time: 7:26 PM Symptomatic Caregiver COVID Call - confirmed: Yes -Caregiver employee ID: [id number] -Symptom onset: 06/20/22 Covid Immunization Dates This patient does not qualify for Health Maintenance. Recent travel outside [place]: no Cares for COVID-19 positive patients: no Known positive COVID-19 contacts: no Previously positive for COVID: yes, Jul 2021 Comorbidities: [] Obesity [] Diabetes Mellitus [] Asthma/COPD [] [] Other: Symptoms: Fever, body aches, chills, sore throat [x] Mild [] Moderate [] Severe CG went tot work today but started having symptoms. [employer] told her to call the Hotline. Shira meets criteria for Caregiver COVID19 testing. CG prefers to go to local retail pharmacy. CG will call back with results. New chart set up and activation code sent. Plan -Reinforced self-isolation, avoiding public areas and gatherings, pending COVID19 result -Mask while home with family and not isolated alone -Advised no work pending COVID19 result -Advised to seek evaluation by primary care provider, [facility], or ED with worsening or escalating symptoms -Advised to call the COVID Hotline with outstanding questions/comments/concerns Signature: Sydni Hernández RN Patient Name: Shira Cunningham Date: 06/20/2022 Time: 7:26 PM Pager/Contact: documented in this encounter [facility] Summary Purpose Family History No Family History Records FoundNo Family History Records FoundNo Family History Records Found Advance Directives No Advanced Directives Records FoundNo Advanced Directives Records FoundNo Advanced Directives Records Found Additional Source Comments Source Comments (unrecognize d section and content) In the event this informatio n is protected by the Federal Confidentiality of Alcohol and Drug Abuse Patient Records regulations: The Federal rules restrict any use of the information to criminally investigate or prosecute any alcohol or drug abuse patient.[facility] Reason for Visit (unrecogniz ed section and content) Reason Onset Date Comments [facility] COVID Outreach 06/20/2022 INFORMATION SOURCE (unrecogn ized section and content) DATE CREATED AUTHOR 11/27/2022 [facility] DATE CREATED AUTHOR AUTHOR'S ORGANIZ ATION 02/23/2023 [facility] DATE CREATED AUTHOR AUTHOR'S ORGANIZ ATION 11/26/2023 [facility] FOR RECORDS PERTAINING TO PATIENTS WHO ARE OR HAVE BEEN ENROLLED IN A CHEMICAL DEPENDENCY/SUBSTANCEABUSE PROGRAM, SOME INFORMATION MAY BE OMITTED. This clinical summary was aggregated from multiple sources. Caution should be exercised in using it in the provision of clinical care. This summary normalizes information from multiple sources, and as a consequence, information in this document may materially change the coding, format and clinical context of patient data. In addition, data may be omitted in some cases. CLINICAL DECISIONS SHOULD BE BASED ON THE PRIMARY CLINICAL RECORDS. [facility] [employer] provides no warranty or guarantee of the accuracy or completeness of information in this document.
== END 2024-03-30 13:54 | disposition home or self-care (01) ==
PROVIDERS: Emergency Provider Emergency Medicine; PCP Family Medicine
DX: N94.6 Dysmenorrhea, unspecified (principal)
CPT/HCPCS: 36415; 80048; 84703; 85025; 96374; 96375; 99284; J1885; J2405